=== PATIENT | female | born 1985 | race Caucasian/White ===

== ENCOUNTER 2023-07-31 03:55 | Emergency (ER) | payer BC ==
[2023-07-31] MEDS ORDERED: LIDOCAINE 1% 20 ML MDV ONE (04:07)
[2023-07-31] MEDS ORDERED: TDAP (DIPHTH,PERTUSS(ACELL),TET VAC) 0.5 ML VIAL IMVAC ONE (04:34)
--- NOTE | 2023-07-31 04:37 | EDPHYS ---
Physician Documentation [facility] Name: Monique Syed Age: 37 yrs Sex: Female : 1985 Arrival Date: 07/31/2023 Time: 03:55 Bed 7 Private MD: ED Physician Jasiel Barbosa HPI: 07/30 04:06 This 37 yrs old Female presents to ER via Unassigned with complaints of ec2 Laceration To Hand. 04:06 Patient arrives today for evaluation of her hand laceration that occurred approximately ec2 2 hours prior to arrival. Patient reports that she slipped and injured her hand. No LOC, no head strike, she is unsure of her last tetanus shot. She states that she had injured it while breaking a glass bottle.. 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 - Infectious Disease History:: Denies. - Social history:: Smoking status: Patient reports the use of cigarette tobacco products, denies chronic smoking, but will smoke occasionally, Patient uses alcohol, only on a social basis. street drugs, marijuana. ROS: 04:06 Constitutional: as per hpi ec2 Exam: 04:06 Constitutional: GEN: NAD Head: atraumatic Eyes: EOMI Ears: External ears are ec2 normal. CV: regular rate LUNGS: no respiratory distress ABD: non-distended SKIN: 3 cm laceration noted to the palmar aspect of the left hand, no arterial bleeding present. Intact distal neurovascular status. MSK: no evidence of trauma NEURO: moves all extremities equally Vital Signs: 04:10 BP 190 / 120; Pulse 94; Resp 20; Temp 98.6; Pulse Ox 98% ; Weight 83.91 kg; Height 5 bm8 ft. 5 in. ; Pain 8/10; 04:43 BP 164 / 99; Pulse 86; Resp 17; Temp 98.6; Pulse Ox 98% ; Pain 2/10; bm8 04:10 Body Mass Index 30.79 (83.91 kg, 165.1 cm) bm8 04:10 Pain Scale: Adult bm8 04:43 Pain Scale: Adult bm8 [place] Coma Score: 04:19 Eye Response: spontaneous(4). Motor Response: obeys commands(6). Verbal Response: bm8 oriented(5). Total: 15. 04:43 Eye Response: spontaneous(4). Motor Response: obeys commands(6). Verbal Response: bm8 oriented(5). Total: 15. Laceration: 04:33 Wound Repair of 3cm ( 1.2in ) subcutaneous laceration to left hand. Distal ec2 neuro/vascular/tendon intact. Anesthesia: Local anesthetic administered with 7 mls of 1% lidocaine. Wound prep: Moderate cleansing by me. Skin closed with 3 4-0 Prolene using simple sutures and sterile technique. Dressed with 4x4's, non-adherent dressing. Patient tolerated well. MDM: 04:01 Patient medically screened. ec2 04:06 Data reviewed: vital signs. ED course: Patient arrives today for evaluation of a ec2 laceration to the left hand. Examination remarkable for well-appearing nontoxic dividual with a laceration as noted above. Will update the patient's tetanus status, will numb the area with lidocaine and perform suture repair. Differential diagnosis included process such as laceration, arterial injury, nerve injury.. 04:33 ED course: Laceration approximately 3 cm in length, the more medial portion ec2 approximated well, she does have a small tissue avulsion that elected not to repair as I do not want to cause a significant scar to the area. We placed nonadherent as well as 4 x 4's over the wound. Tetanus updated. Will discharge home. Return precautions given.. 04:35 ED course: After anesthesia of the wound, I explored the wound, no evidence of retained ec2 foreign body. . Administered Medications: 04:22 Drug: Lidocaine-Epinephrine Infiltration -1%: (1:100,000) 20 ml 20 ml Infiltration bm8 once; to bedside {Note: to left palm, by provider .} Volume: 20 ml; Route: Infiltration; 04:42 Follow up: Response: No adverse reaction bm8 04:22 Drug: Boostrix Tdap IM 0.5 ml IM once; as a single dose Route: IM; Site: right deltoid; bm8 04:42 Follow up: Response: No adverse reaction bm8 Disposition Summary: 07/31/23 04:37 Discharge Ordered Condition: Stable ec2 Diagnosis - Hand Laceration/ Open wound of hand ec2 Followup: ec2 - With: Private Physician - When: - Reason: Re-evaluation by your physician Discharge Instructions: - Discharge Summary Sheet ec2 - Laceration Care, Adult ec2 Forms: - Medication Reconciliation Form ec2 - Antibiotic Education ec2 - Prescription Opioid Use ec2 - Patient Portal Instructions ec2 - Leadership Thank You Letter ec2 Signatures: Jasiel Barbosa MD MD ec2 Jose Carlos Hernandez RN RN bm8 Corrections: (The following items were deleted from the chart) 04:35 04:06 Patient arrives today for evaluation of her hand laceration that occurred ec2 approximately 2 hours prior to arrival. Patient reports that she slipped and injured her hand. No LOC, no head strike, she is unsure of her last tetanus shot.. ec2
--- NOTE | 2023-07-31 04:37 | ER ---
Nurse's Notes [facility] Name: Monique Syed Age: 37 yrs Sex: Female : 1985 Arrival Date: 07/31/2023 Time: 03:55 Bed 7 Private MD: Diagnosis: Hand Laceration/ Open wound of hand Presentation: 07/30 04:10 Chief complaint: Patient states: i was holding a drink in my hand, while getting out of bm8 the pool and slipped shattering the glass and cutting my hand around 0200 this morning. Coronavirus screen: At this time, the client does not indicate any symptoms associated with coronavirus-19. Ebola Screen: Patient negative for fever greater than or equal to 101.5 degrees Fahrenheit, and additional compatible Ebola Virus Disease symptoms Patient denies exposure to infectious person. Patient denies travel to an Ebola-affected area in the 21 days before illness onset. No symptoms or risks identified at this time. Complicating Factors: There are no complicating factors for this patient. Initial Sepsis Screen: Does the patient meet any 2 criteria? No. Patient's initial sepsis screen is negative. Does the patient have a suspected source of infection? No. Patient's initial sepsis screen is negative. Risk Assessment: Do you want to hurt yourself or someone else? Patient reports no desire to harm self or others. Onset of symptoms was July 31, 2023 at 02:00. Care prior to arrival: wound care to left hand. 04:10 Method Of Arrival: Ambulatory bm8 04:10 Acuity: LOVE 4 bm8 Triage Assessment: 04:13 General: Appears in no apparent distress. uncomfortable, Behavior is calm, cooperative. bm8 Pain: Complains of pain in palm of left hand and inner aspect of left palm Pain radiates to left arm Pain currently is 8 out of 10 on a pain scale. Quality of pain is described as burning, Pain began 2 hours ago. EENT: No deficits noted. No signs and/or symptoms were reported regarding the EENT system. Neuro: No deficits noted. Level of Consciousness is awake, alert, obeys commands, Oriented to person, place, time, situation. Cardiovascular: No deficits noted. Heart tones S1 S2 present Capillary refill < 3 seconds Patient's skin is warm and dry. Respiratory: No deficits noted. Airway is patent Trachea midline Respiratory effort is even, unlabored, Respiratory pattern is regular, symmetrical. GI: No deficits noted. No signs and/or symptoms were reported involving the gastrointestinal system. : No deficits noted. No signs and/or symptoms were reported regarding the genitourinary system. Derm: Wound noted palm of left hand and inner aspect of left palm. Injury Description: Laceration sustained to palm of left hand and inner aspect of left palm is clean, 0.5 to 2.5 cm long, bleeding moderately, was sustained 2-4 hours ago. is bleeding a small amount. 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 - Infectious Disease History:: Denies. - Social history:: Smoking status: Patient reports the use of cigarette tobacco products, denies chronic smoking, but will smoke occasionally, Patient uses alcohol, only on a social basis. street drugs, marijuana. Screenin:19 [facility] ED Fall Risk Assessment (Adult) History of falling in the last 3 months, bm8 including since admission No falls in past 3 months (0 pts) Confusion or Disorientation No (0 pts) Intoxicated or Sedated No (0 pts) Impaired Gait No (0 pts) Mobility Assist Device Used No (0 pt) Altered Elimination No (0 pt) Score/Fall Risk Level 0 - 2 = Low Risk Oriented to surroundings, Maintained a safe environment, Educated pt \T\ family on fall prevention, incl call for assistance when getting out of bed. Abuse screen: Denies threats or abuse. Nutritional screening: No deficits noted. Tuberculosis screening: No symptoms or risk factors identified. Assessment: :19 Reassessment: see triage assessment. bm8 04:44 Musculoskeletal: No deficits noted. bm8 Vital Signs: 04:10 BP 190 / 120; Pulse 94; Resp 20; Temp 98.6; Pulse Ox 98% ; Weight 83.91 kg; Height 5 bm8 ft. 5 in. ; Pain 8/10; 04:43 BP 164 / 99; Pulse 86; Resp 17; Temp 98.6; Pulse Ox 98% ; Pain 2/10; bm8 04:10 Body Mass Index 30.79 (83.91 kg, 165.1 cm) bm8 04:10 Pain Scale: Adult bm8 04:43 Pain Scale: Adult bm8 [place] Coma Score: 04:19 Eye Response: spontaneous(4). Motor Response: obeys commands(6). Verbal Response: bm8 oriented(5). Total: 15. 04:43 Eye Response: spontaneous(4). Motor Response: obeys commands(6). Verbal Response: bm8 oriented(5). Total: 15. ED Course: 04:01 Patient arrived in ED. gm2 04:01 Jasiel Barbosa MD is Attending Physician. ec2 04:10 Jose Carlos Hernandez, RN is Primary Nurse. bm8 04:13 Triage completed. bm8 04:13 Arm band placed on right wrist. Patient placed in an exam room, on a stretcher, on bm8 pulse oximetry. Bandage applied. 04:19 Patient has correct armband on for positive identification. Bed in low position. Call bm8 light in reach. Side rails up X 1. Adult w/ patient. Provided Education on: wound care and post er care. Pulse ox on. NIBP on. Door closed. Noise minimized. Warm blanket given. Verbal reassurance given. Head of bed elevated. 04:19 Assist provider with laceration repair on left hand that was 2.5 cm. or less using bm8 sutures. Set up tray. Performed by Jasiel Barbosa MD Dressed with 4X4s, Patient tolerated well. Patient did not have IV access during this emergency room visit. Administered Medications: 04:22 Drug: Lidocaine-Epinephrine Infiltration -1%: (1:100,000) 20 ml 20 ml Infiltration bm8 once; to bedside {Note: to left palm, by provider .} Volume: 20 ml; Route: Infiltration; 04:42 Follow up: Response: No adverse reaction bm8 04:22 Drug: Boostrix Tdap IM 0.5 ml IM once; as a single dose Route: IM; Site: right deltoid; bm8 04:42 Follow up: Response: No adverse reaction bm8 Medication: 04:19 Vaccine Information Statement (VIS) provided today. Questions and/or concerns bm8 addressed. VIS edition date: October 09, 2020. Outcome: 04:37 Discharge ordered by . ec2 04:43 Discharged to home ambulatory, with family, bm8 04:43 Condition: stable 04:43 Discharge instructions given to patient, family, Instructed on discharge instructions, follow up and referral plans. no drinking with medication, medication usage, safety practices, wound care, Demonstrated understanding of instructions, follow-up care, medications, 04:52 Patient left the ED. bm8 Signatures: aJsiel Barbosa MD MD ec2 Marni Solomon gm2 Jose Carlos Hernandez, RN RN bm8
[2023-07-31 05:03] VITALS: BP 164/99; TEMP 98.6; O2SAT 98
== END 2023-07-31 04:52 | disposition home or self-care (01) ==
LOC: ER 03:55
PROC: 0HQGXZZ Repair Left Hand Skin, External Approach (ICD-10-PCS; principal; 2023-07-31)
DX: S61.412A Laceration without foreign body of left hand, initial encounter (principal)
CPT/HCPCS: 96372; 99284; 12002; J2001; 12001